=== PATIENT | female | born 1985 | race African-American/Black ===

== ENCOUNTER → 2017-11-26 | Outpatient (CLI) | payer OTHER | END | disposition home or self-care (01) | LOC: LAB 09:38 | PROVIDERS: ATTEND Preventive Medicine Preventive Medicine/Occupational Environmental Medicine | DX: Z02.1 Encounter for pre-employment examination (principal) | CPT/HCPCS: 36415; 86735; 86762; 86765; 86787; 87340 ==

== ENCOUNTER 2020-02-02 11:22 | Emergency (ER) | payer BC, MEDICAID ==
[~2020-02-02] VITALS: Ht 167.6 cm; Wt 83.9 kg
[2020-02-02 11:58] VITALS: BP 110/68
== END 2020-02-02 15:31 | disposition home or self-care (01) ==
LOC: ER 11:22 → EEVIPCON 11:22 → ER 15:31
DX: M54.12 Radiculopathy, cervical region (principal); M62.838 Other muscle spasm; Z91.81 History of falling
CPT/HCPCS: 36415; 84702

== ENCOUNTER 2022-05-19 08:27 | Emergency (ER) | payer BC, MEDICAID ==
[~2022-05-19] VITALS: Ht 167.6 cm; Wt 88.1 kg
[2022-05-19 08:48] VITALS: BP 111/78
[2022-05-19 09:30] LABS: Urine Bacteria FEW /hpf (None Seen); Urine Blood Negative /uL (Negative); Urine Mucus FEW (None Seen); Urine Specific Gravity 1.021 (1.001-1.035); Urine WBC 4 /hpf (0 - 5)
[2022-05-19] MEDS ORDERED: AMOX-277 PO (09:41)
[2022-05-19] MEDS ORDERED: ACET-1080 PO (09:41)
== END 2022-05-19 10:00 | disposition home or self-care (01) ==
LOC: ER 08:27
DX: O26.892 Other specified pregnancy related conditions, second trimester (principal); H66.91 Otitis media, unspecified, right ear; K02.9 Dental caries, unspecified; Z86.2 Personal history of diseases of the blood and blood-forming organs and certain disorders involving the immune mechanism; Z79.2 Long term (current) use of antibiotics; Z79.899 Other long term (current) drug therapy; Z3A.15 15 weeks gestation of pregnancy
CPT/HCPCS: 76805; 81001

== ENCOUNTER 2025-06-22 11:24 | Emergency (ER) | payer MEDICAID ==
[~2025-06-22] VITALS: Ht 167.6 cm; Wt 87.0 kg
[~2025-06-22 11:24] MED LIST: ACET-1080 PO; AMOX875T4 PO
[2025-06-22 11:26] VITALS: TEMP 97.8
[2025-06-22] MEDS: METHOCARBAMOL 500 MG TAB PO ONE (11:45)
[2025-06-22] MEDS: KETOROLAC TROMETH 60MG/2ML VIAL IM ONE (11:45)
--- NOTE | 2025-06-22 11:46 | ECG ---
[facility] Test Date: 2025-06-22 Test Time: 11:35:33 Pat Name: SHAZIA VILLAGRAN Department: ED Room: Gender: F Heavy Truck Mechanic: gp : 1985 Requested By: GERMÁN FATIMA Order Number: [id number] Reading MD: Juan Pablo Kimbrough Measurements Intervals [place] Rate: 80 P: 48 VA: 189 QRS: 69 QRSD: 131 T: 39 QT: 382 QTc: 441 Interpretive Statements Sinus rhythm Nonspecific intraventricular conduction delay Borderline T abnormalities, anterior leads Electronically Signed On 06-22-2025 19:19:33 PDT by Juan Pablo Kimbrough Please click the below link to view image of tracing.
--- NOTE | 2025-06-22 11:48 | ED.PDOC ---
Back pain HPI HPI Comments This is a 39 year old female presenting to the ED with chief complaint of back pain. Patient reports that she woke up this morning with sharp back pain in the mid back, then while at work 5 hours ago, she begun to experience severe back pain that radiates into her mid chest with associated difficulty breathing due to the pain. Patient relays that she believes she may have pulled a muscle or developed a muscle spasm while lifting heavy boxes at work, but she is unsure. She denies any other change in activity. Patient states deep breaths worsen her chest pain. Patient denies any fall, injury, cough, fever, nausea, vomiting, or abdominal pain. Chief Complaint: Back Pain Time Seen by MD: 11:46 Primary Care Provider: DENIES Reviewed Notes: Nurses Notes, Medications, Allergies Allergies: Coded Allergies: NO KNOWN ALLERGIES (Unverified , 02/02/20) Home Meds Active Scripts Acetaminophen (Tylenol 8 Hour Arthritis) 650 Mg Tab, 650 MG PO TID, #24 TAB Prov:CAROLYNN SIMPSON 05/19/22 Amoxicillin & Pot Clavulanate (Amoxicillin/Potassium Cla) 875 Mg Tab, 875 MG PO BID, #20 TAB Prov:CAROLYNN SIMPSON 05/19/22 Information Source: Patient Mode of Arrival: Ambulatory Timing: Hours Duration: Since onset Location of Back pain: (B) Thoracic Radiates to: Medial: Other (Chest) Severity: Moderate Prehospital treatment: None Quality: Sharp Onset: Spontaneous Circumstance: Work Related Past Medical History PAST MEDICAL HISTORY: Anemia Surgical History: Surgical History (Other): Gastric sleeve SHIRT TRIMMER History: Denies all SHIRT TRIMMER Hx, Other Family History Family History: Reviewed,noncontributory to illness Social History Smoker: Cigarettes, Other (Vape) Alcohol: Denies ETOH Use Drugs: Denies Drug Use Lives In: Home Constitutional: denies: chills, diaphoresis, fatigue, fever, malaise, sweats, weakness, others EENTM: denies: blurred vision, double vision, ear bleeding, ear discharge, ear drainage, ear pain, ear ringing, eye pain, eye redness, hearing loss, mouth pain, mouth swelling, nasal discharge, nose bleeding, nose congestion, nose pain, photophobia, tearing, throat pain, throat swelling, voice changes, others Respiratory: reports: shortness of breath; denies: cough, hemoptysis, orthopnea, SOB at rest, SOB with excertion, stridor, wheezing, others Cardiovascular: reports: chest pain; denies: dizzy spells, diaphoresis, Dyspnea on exertion, edema, irregular heart beat, left arm pain, lightheadedness, palpitations, PND, syncope, others Gastrointestinal: denies: abdomen distended, abdominal pain, blood streaked bowels, constipated, diarrhea, dysphagia, difficulty swallowing, hematemesis, melena, nausea, poor appetite, poor fluid intake, rectal bleeding, rectal pain, vomiting, others Genitourinary: denies: abnormal vagina bleeding, burning, dyspareunia, dysuria, flank pain, frequency, hematuria, incontinence, pain, , vagina discharge, urgency, others Neurological: denies: dizziness, fainting, headache, left sided numbness, left sided weakness, numbness, paresthesia, pre-existing deficit, right sided numbness, right sided weakness, seizure, speech problems, tingling, tremors, weakness, others Musculoskeletal: reports: back pain; denies: gout, joint pain, joint swelling, muscle pain, muscle stiffness, neck pain, others Integumetry: denies: bruises, change in color, change in hair/nails, dryness, laceration, lesions, lumps, rash, wounds, others Allergic/Immunocompromised: denies: Difficulty Healing, Frequent Infections, Hives, Itching, others Hematologic/Lymphatic: denies: anemia, blood clots, easy bleeding, easy bruising, swollen glands, others Endocrine: denies: excessive hunger, excessive sweating, excessive thirst, excessive urination, flushing, intolerance to cold, intolerance to heat, unexplained weight gain, unexplained weight loss, others Psychiatric: denies: anxiety, bipolar disorder, depression, hopeless, panic disorder, schizophrenia, sleepless, suicidal, others All Other Systems: Reviewed and Negative Physical Exam General Appearance: No Apparent Distress, Obese HEENT: Other (Pupils and face symmetric. Moist mucous membranes.) Neck: Full Range of Motion, Normal Inspection Respiratory: Chest Non-Tender, Lungs Clear, No Accessory Muscle Use, No Respiratory Distress, Normal Breath Sounds Cardiovascular: No Edema, No JVD, Regular Rate/Rhythm Breast Exam: Deferred Gastrointestinal: Non Tender, Soft Genitalia: Deferred Pelvic: Deferred Rectal: Deferred Extremities: Normal inspection, Normal range of motion, Non-tender, No pedal edema Musculoskeletal : Extremity Location: Back (Midthoracic midline and left paraspinal localized tenderness to palpation) Apperance: Tenderness Neurologic: Alert (Oriented x4), Normal Affect, Normal Mood, Other (Ambulatory) Cerebellar Function: NOT DONE Reflexes: NOT DONE Skin: Dry, Normal Color, Warm Lymphatic: NOT DONE Was a procedure done? Was a procedure done?: No EKG EKG : Comments Sinus rhythm, rate 80, normal ND interval, QRS prolonged at 131, normal QTC interval, normal axis, possible incomplete right bundle branch block, anteroseptal T inversion with other nonspecific T change. Back Pain Differential Dx Differential Diagnosis: Musculoskeletal Pain, Strain, Other (ACS, MA, PE, pne umonia, among other) X-Ray, Labs, Meds, VS Vital Signs Date Time Temp Pulse Resp B/P (MAP) Pulse Ox O2 Delivery O2 Flow Rate FiO2 06/22/25 13:07 66 18 98 Room Air 06/22/25 13:07 66 18 96/60 (72) 98 06/22/25 11:35 80 06/22/25 11:26 97.8 83 18 131/75 100 97.8 Lab Test 06/22/25 12:47 06/22/25 12:06 Range/Units Troponin I High Sensitivity < 3 L < 3 L </=34 ng/L White Blood Count 4.2 L 4.4-10.8 10^3/uL Red Blood Count 4.50 4.0-5.20 10^6/uL Hemoglobin 11.5 L 12.2-16.2 g/dL Hematocrit 35.3 L 36.0-46.0 % Mean Corpuscular Volume 78.5 L 80.0-100.0 fL Mean Corpuscular Hemoglobin 25.5 L 28.0-32.0 pg Mean Corpuscular Hemoglobin Concent 32.5 32.0-36.0 g/dL Red Cell Distribution Width 13.9 11.8-14.3 % Platelet Count 303 140-450 10^3/uL Mean Platelet Volume 8.2 6.9-10.8 fL Neutrophils (%) (Auto) 48.6 37.0-80.0 % Lymphocytes (%) (Auto) 36.4 10.0-50.0 % Monocytes (%) (Auto) 7.0 0.0-12.0 % Eosinophils (%) (Auto) 7.1 H 0.0-7.0 % Basophils (%) (Auto) 0.9 0.0-2.0 % Neutrophils # (Auto) 2.0 1.6-8.6 10 ^3/uL Lymphocytes # (Auto) 1.5 0.4-5.4 10 ^3/uL Monocytes # (Auto) 0.3 0-1.3 10 ^3/uL Eosinophils # (Auto) 0.3 0-0.8 10 ^3/uL Basophils # (Auto) 0 0-0.2 10 ^3/uL Nucleated Red Blood Cells 0.1 % Prothrombin Time 10.7 9.3-11.8 sec Prothrombin Time INR 1.01 0.9-1.15 Activated Partial Thromboplast Time 29.9 24.5-34.5 SEC D-Dimer, Quantitative 0.41 0.0-0.49 mg/L FEU Sodium Level 139 136-145 mmol/L Potassium Level 3.7 3.5-5.1 mmol/L Chloride Level 107 98-107 mmol/L Carbon Dioxide Level 23 20-31 mmol/L Anion Gap 9 5-15 Blood Urea Nitrogen 17 9-23 mg/dL Creatinine 1.04 H 0.550-1.02 mg/dL Glomerular Filtration Rate Calc 69 >90 mL/min BUN/Creatinine Ratio 16.3 10.0-20.0 Serum Glucose 118 H 74-106 mg/dL Calcium Level 9.1 8.7-10.4 mg/dL B-Type Natriuretic Peptide 4.66 0-100 pg/mL Current Medications Medications (Trade) Dose Ordered Sig/Rachael Route Start Time Stop Time Status Last Admin Ketorolac Tromethamine (Toradol Injection) 60 mg ONCE ONCE IM 06/22/25 11:45 06/22/25 11:47 DC 06/22/25 11:45 Methocarbamol (Robaxin) 1,000 mg ONCE ONCE PO 06/22/25 11:45 06/22/25 11:47 DC 06/22/25 11:[address] [address] Ph: [phone] DIAGNOSTIC IMAGING Diagnostic Imaging Report : [id number] Signed PATIENT: SHAZIA VILLAGRAN ACCT: [id number] UNIT: [id number] : 1985 LOC: ER ROOM / BED: / AGE / SEX: 39 / F ADM STATUS: REG ER SERVICE 1145 ORDERING PHYSICIAN: GERMÁN ASHTON MD PROCEDURE(s): CXRP - CHEST PORTABLE REASON: cp ORDER NUMBER(s): [id number], ACCESSION NUMBER(s): [id number] EXAM: XY CHEST PORTABLE Indication: cp Technique: Single frontal view of the chest was obtained Comparison: None FINDINGS: Lines and Tubes: None Lungs: No focal consolidation. Pleura: No effusion. No pneumothorax. Cardiomediastinal contours: Unremarkable Bones: No acute osseous abnormality. IMPRESSION: No acute cardiopulmonary disease. ATED BY: DOTTY CONLEY MD DICTATED DATE/TIME: 06/22/25 1230 SIGNED BY: DOTTY CONLEY MD SIGNED DATE/TIME: 06/22/25 1230 CC: X-Ray, Labs, Meds, VS Comment 39-year-old female with history of anemia complaining of thoracic back pain radiating to the chest, associated with difficulty breathing due to the pain Vitals unremarkable Exam remarkable for reproducible pain with palpation of the midthoracic midline and left paraspinal areas Rhythm strip independently interpreted by me: Sinus rhythm, rate 80, no ectopy. Chest x-ray unremarkable CBC, basic metabolic panel, BNP, D-dimer and 2 serial troponins unremarkable for any abnormality of acute significance Patient treated with the following in the ED: Toradol 60 mg IM, Robaxin 1 g p.o., [place] 5/325 mg p.o. On re-evaluation, patient states pain has improved and vitals were stable. Patient appears stable for discharge with close outpatient follow-up with her primary physician or occupational health care provider. Rx ibuprofen, [place], Robaxin Images Reviewed?: Images reviewed and evaluated by me Time of 1ST Reevaluation: 12:45 Reevaluation 1ST: Unchanged Patient Education/Counseling: Diagnosis, Treatment Family Education/Counseling: No Family Present SEPSIS Sepsis Screen Date sepsis recognized/suspect: Jun 22, 2025 Time Sepsis recognized/suspect: 1126 Recent Procedure: No On Antibiotic Therapy: No Respiratory Rate >20: No Heart Rate >90: No Temp<36 C (96.8 F) or >38.3 C: No SBP <90 or MAP <65 mmHG: No New Acute Mental Status Change: No Is the patient on CPAP, BIPAP,: No Physician Orders Chest Portable (06/22/25 11:45) Urinalysis (06/22/25 11:45) Troponin-I Hs (06/22/25 14:45) Vital Signs Date Time Temp Pulse Resp B/P (MAP) Pulse Ox O2 Delivery O2 Flow Rate FiO2 06/22/25 13:07 66 18 98 Room Air 06/22/25 13:07 66 18 96/60 (72) 98 06/22/25 11:35 80 06/22/25 11:26 97.8 83 18 131/75 100 97.8 Laboratory Tests Test 06/22/25 12:06 White Blood Count 4.2 10^3/uL (4.4-10.8) L Medications Medications Dose Ordered Sig/Rachael Route Start Time Stop Time Status Last Admin Dose Admin Ketorolac Tromethamine 60 mg ONCE ONCE IM 06/22/25 11:45 06/22/25 11:47 DC 06/22/25 11:45 Methocarbamol 1,000 mg ONCE ONCE PO 06/22/25 11:45 06/22/25 11:47 DC 06/22/25 11:45 Departure 1 Departure Time of Disposition: 14:34 Impression: Primary Impression: Thoracic back pain Qualified Codes: M54.6 - Pain in thoracic spine Additional Impression: Chest pain with low risk for cardiac etiology Disposition: HOME / SELF CARE / HOMELESS Condition: Stable Additional Instructions: Your blood tests including screening test for heart attack, heart failure and blood clots, were essentially unremarkable. Your chest x-ray was normal. Your symptoms may be due to a muscle strain or spasm. I have prescribed pain medication and muscle relaxers.. Follow-up with your primary doctor or occupational health care provider in 1-2 days for PT/OT evaluation and possible further imaging of your spine. [facility] [id number] [place] [id number] Ph: [phone] DIAGNOSTIC IMAGING Diagnostic Imaging Report : [id number] Signed PATIENT: SHAZIA VILLAGRAN ACCT: [id number] UNIT: [id number] : 1985 LOC: ER ROOM / BED: / AGE / SEX: 39 / F ADM STATUS: REG ER SERVICE 1145 ORDERING PHYSICIAN: GERMÁN ASHTON MD PROCEDURE(s): CXRP - CHEST PORTABLE REASON: cp ORDER NUMBER(s): [id number], ACCESSION NUMBER(s): [id number] EXAM: XY CHEST PORTABLE Indication: cp Technique: Single frontal view of the chest was obtained Comparison: None FINDINGS: Lines and Tubes: None Lungs: No focal consolidation. Pleura: No effusion. No pneumothorax. Cardiomediastinal contours: Unremarkable Bones: No acute osseous abnormality. IMPRESSION: No acute cardiopulmonary disease. e-Prescriptions Methocarbamol (Methocarbamol) 500 Mg Tab 1000 MG PO Q8HP PRN, #30 TAB Prn muscle spasm Prov: GERMÁN ASHTON MD 06/22/25 Meloxicam (Meloxicam) 15 Mg Tab 1 TAB PO DAILY PRN, #30 TAB 2 Refills Prn pain Prov: GERMÁN ASHTON MD 06/22/25 Hydrocodone-Acetaminophen (Hydrocodone Bitartrate/AC 5-325 mg) 1 Tab Tab 1 TAB PO Q6HP PRN, #20 TAB Prn breakthrough pain Prov: GERMÁN ASHTON MD 06/22/25 Discharged With: Relative Critical Care Note Critical Care Time?: No Stability Stability form required: No Heart Score Heart Score: Heart Score Response (Comments) Value History Slightly Suspicious 0 EKG Repolarization Disturb 1 Age <45 0 Risk Factors No known risk factors 0 Troponin Normal limit 0 Total 1 I personally scribed for GERMÁN ASHTON MD ([email or web address]) on 06/22/25 at 11:48. Electronically submitted by Michael Delaney ([email or web address]). I personally scribed for GERMÁN ASHTON MD ([email or web address]) on 06/22/25 at 1 3:00. Electronically submitted by Michael Delaney ([email or web address]). GERMÁN ASHTON MD Jun 22, 2025 11:48
[2025-06-22 12:31] LABS: Hematocrit 35.3 % (36.0-46.0); Hemoglobin 11.5 g/dL (12.2-16.2); Mean Corpuscular Hemoglobin 25.5 pg (28.0-32.0); Mean Corpuscular Volume 78.5 fL (80.0-100.0); Nucleated Red Blood Cells % 0.1 %
--- NOTE | 2025-06-22 12:33 | DVH ---
EXAM: XY CHEST PORTABLE Indication: cp Technique: Single frontal view of the chest was obtained Comparison: None FINDINGS: Lines and Tubes: None Lungs: No focal consolidation. Pleura: No effusion. No pneumothorax. Cardiomediastinal contours: Unremarkable Bones: No acute osseous abnormality. IMPRESSION: No acute cardiopulmonary disease.
[2025-06-22 12:35] LABS: Potassium 3.7 mmol/L (3.5-5.1); Sodium 139 mmol/L (136-145)
[2025-06-22 12:36] LABS: Anion Gap 9 (5-15); Calcium 9.1 mg/dL (8.7-10.4); Carbon Dioxide 23 mmol/L (20-31); Chloride 107 mmol/L (98-107)
[2025-06-22 12:41] LABS: BUN/Creatinine Ratio 16.3 (10.0-20.0); Blood Urea Nitrogen 17 mg/dL (9-23); Glucose 118 mg/dL (74-106)
[2025-06-22 12:45] LABS: INR 1.01 (0.9-1.15); Partial Thromboplastin Time 29.9 SEC (24.5-34.5); Prothrombin Time 10.7 sec (9.3-11.8)
[2025-06-22 13:07] VITALS: BP 96/60; PULSE 66; RESP 18; O2SAT 98
[2025-06-22] MEDS: HYDROcodone-ACET 5/325MG TAB PO ONE (13:30)
[2025-06-22] MEDS ORDERED: MELO15TA29 PO (14:46)
[2025-06-22] MEDS ORDERED: METH-1181 PO (14:46)
[2025-06-22] MEDS ORDERED: HYDR-4902 PO (14:46)
[2025-06-22 16:14] LABS: Urine Protein, UAD Negative (Negative)
== END 2025-06-22 15:08 | disposition home or self-care (01) ==
LOC: ER 11:24
DX: M54.6 Pain in thoracic spine (principal); R07.89 Other chest pain; F17.210 Nicotine dependence, cigarettes, uncomplicated; Z79.899 Other long term (current) drug therapy
CPT/HCPCS: 36415; 71045; 80048; 81001; 83880; 84484; 85025; 85379; 85610; 85730; 93005; 96372; 99285; J1885